=== PATIENT | male | born 1965 | race Caucasian/White ===

== ENCOUNTER 2018-07-02 07:20 | Day surgery (SDC) | payer MEDICAID ==
[2018-07-02 07:52] VITALS: BMI 19.1
[2018-07-02] MEDS ORDERED: Propofol 10 mg/ml Inj (20 ML) ONE ×2 (08:32→08:49)
[2018-07-02] MEDS ORDERED: Lidocaine Hydrochloride 5 ML INJ ONE (08:33)
[2018-07-02] MEDS ORDERED: Lactated Ringer's 1,000 ML IV ONE (08:35)
[2018-07-02 09:39] VITALS: TEMP 98.4; O2SAT 100
[2018-07-02 13:08] VITALS: BP 133/82; PULSE 60; RESP 12
== END 2018-07-02 10:20 | disposition home or self-care (01) ==
LOC: C.ENDO 07:20
PROVIDERS: ATTEND Internal Medicine Gastroenterology
DX: Z12.11 Encounter for screening for malignant neoplasm of colon (principal); K57.90 Diverticulosis of intestine, part unspecified, without perforation or abscess without bleeding; K64.0 First degree hemorrhoids
CPT/HCPCS: 45378; J2704; J7120